=== PATIENT | male | born 1950 | race Caucasian/White ===

== ENCOUNTER 2024-12-06 20:10 | Emergency (ER) | payer MEDICARE ==
[~2024-12-06] VITALS: Ht 162.6 cm; Wt 84.3 kg
[2024-12-06 20:15] VITALS: BP 137/74; TEMP 37.1; O2SAT 100
[2024-12-06 20:17] VITALS: PULSE 82; RESP 17; O2SAT 97
== END 2024-12-07 01:07 | disposition left against medical advice (07) ==
LOC: ER 20:10
DX: M79.661 Pain in right lower leg (principal); Z53.21 Procedure and treatment not carried out due to patient leaving prior to being seen by health care provider